=== PATIENT | male | born 1975 | race Caucasian/White ===

== ENCOUNTER 2019-10-07 | Emergency (ER) | payer SELFPAY ==
[~2019-10-07] MED LIST: AMOXIL500 MG OR; LORTAB 5 OR; LORTAB 7.5 OR; MEDDOSEPAK OR; NEXIUM40 M1 OR; PENICILLN VK500 MG OR; REGLAN10 MG OR; ZPAK OR; [UNRECOGNIZED DRUG - REMARK]
[2019-10-07] MEDS ORDERED: ZANTAC150 M1 PO (18:57)
[2019-10-07] MEDS ORDERED: BACTRIM DS1 TAB PO (20:02)
[2019-10-07] MEDS ORDERED: KEFLEX500 M1 PO (20:02)
== END 2019-10-07 20:10 | disposition home or self-care (01) | DRG 603 ==
PROC: 0H9EXZZ Drainage of Left Lower Arm Skin, External Approach (ICD-10-PCS; principal; 2019-10-07)
DX: L02.414 Cutaneous abscess of left upper limb (principal); F17.200 Nicotine dependence, unspecified, uncomplicated; B95.62 Methicillin resistant Staphylococcus aureus infection as the cause of diseases classified elsewhere